=== PATIENT | male | born 1985 | race Caucasian/White ===

== ENCOUNTER → 2019-04-24 | Emergency (ER) | payer SELFPAY | END | disposition left against medical advice (07) | LOC: ER 18:49 | DX: M79.89 Other specified soft tissue disorders (principal); Z53.21 Procedure and treatment not carried out due to patient leaving prior to being seen by health care provider ==

== ENCOUNTER 2022-04-12 17:45 | Emergency (ER) | payer OTHER ==
[~2022-04-12] VITALS: Ht 170.2 cm; Wt 80.4 kg
[2022-04-12] MEDS ORDERED: CLIN300C8 PO (22:30)
[2022-04-12] MEDS ORDERED: cefTRIAXone SOD 1,000 MG VL IM ONE (22:30)
[2022-04-12] MEDS ORDERED: CEPH-510 PO (22:30)
[2022-04-12] MEDS ORDERED: TETANUS-DIPTH-ACEL PERTUSSIS 0.5ML SYR Tdap IM ONE (22:30)
[2022-04-12] MEDS ORDERED: ACET-1158 PO (22:30)
[2022-04-13 00:32] VITALS: BP 132/87
== END 2022-04-13 07:56 | disposition home or self-care (01) ==
LOC: ER 17:45
DX: L03.113 Cellulitis of right upper limb (principal); L03.114 Cellulitis of left upper limb; F15.90 Other stimulant use, unspecified, uncomplicated; Z79.899 Other long term (current) drug therapy
CPT/HCPCS: 90471; 90715; 96372; 99284; J0696